=== PATIENT | female | born 1980 | race Two or more races ===

== ENCOUNTER → 2020-06-17 15:16 | Outpatient (BNVA) | payer MEDICAID, SELFPAY | PROVIDERS: PCP Internal Medicine; Referring Provider Internal Medicine; Visit Provider Internal Medicine Cardiovascular Disease | DX: Z76.89 Persons encountering health services in other specified circumstances (principal) ==

== ENCOUNTER → 2020-07-09 07:56 | Outpatient (BNVA) | payer BC, MEDICAID, SELFPAY | PROVIDERS: PCP Internal Medicine; Visit Provider Advanced Practice Midwife | DX: Z76.89 Persons encountering health services in other specified circumstances (principal) ==

== ENCOUNTER → 2020-07-13 08:19 | Outpatient (BNVA) | payer MEDICAID, SELFPAY | PROVIDERS: PCP Internal Medicine; Visit Provider Dietitian, Registered | DX: Z76.89 Persons encountering health services in other specified circumstances (principal) ==

== ENCOUNTER → 2020-07-21 12:40 | Outpatient (BNVA) | payer MEDICAID, SELFPAY | PROVIDERS: PCP Internal Medicine; Visit Provider Dietitian, Registered | DX: Z76.89 Persons encountering health services in other specified circumstances (principal) ==

== ENCOUNTER → 2020-07-28 11:39 | Outpatient (BNVA) | payer MEDICAID, SELFPAY | PROVIDERS: PCP Internal Medicine; Referring Provider Internal Medicine; Visit Provider Dietitian, Registered | DX: E66.9 Obesity, unspecified (principal) ==

== ENCOUNTER → 2020-07-28 11:39 | Outpatient (BNVA) | payer MEDICAID, SELFPAY | PROVIDERS: PCP Internal Medicine; Referring Provider Internal Medicine; Visit Provider Dietitian, Registered | DX: Z76.89 Persons encountering health services in other specified circumstances (principal) ==

== ENCOUNTER → 2020-09-02 07:40 | Outpatient (BNVA) | payer MEDICAID, SELFPAY | PROVIDERS: PCP Internal Medicine; Visit Provider Surgery | DX: Z76.89 Persons encountering health services in other specified circumstances (principal) ==

== ENCOUNTER → 2020-10-07 08:16 | Outpatient (BNVA) | payer MEDICAID, SELFPAY | PROVIDERS: PCP Internal Medicine; Visit Provider Surgery | DX: Z76.89 Persons encountering health services in other specified circumstances (principal) ==

== ENCOUNTER → 2020-11-04 08:15 | Outpatient (BNVA) | payer MEDICAID, SELFPAY | PROVIDERS: PCP Internal Medicine; Visit Provider Surgery ==

== ENCOUNTER → 2020-12-07 13:36 | Outpatient (REF) | payer MEDICAID, SELFPAY ==
--- NOTE | 2020-12-07 13:45 | ECG_ITS ---
Hook-up date: 2020-12-07 13:52:00 Duration: 25:35:00 Test Indications: PALPITATIONS Medications: 59562 QRS complexes 821 Ventricular ectopics which represent <1 % of total QRS comp. 3 Supraventricular ectopics which represent <1 % of total QRS comp. * Paced QRS complexs which represent % of total QRS comp. VENTRICULAR ECTOPY 821 Isolated 0 Bigeminal Cycles 0 Couplets 0 Runs 0 Beats in Runs * Beats LONGEST at * BPM at :: -- * Beats FASTEST at * BPM at :: -- SUPRAVENTRICULAR ECTOPY 1 Isolated 1 Couplets 0 Runs 0 Beats in Runs * Beats LONGEST at * BPM at :: -- * Beats FASTEST at * BPM at :: -- HEART RATES 49 MIN at 00:24:09 2020-12-08 80 AVG 142 MAX at 13:54:18 2020-12-07 LONGEST RR 1.4160 secs at 00:24:03 2020-12-08 S-T LEVELS Channel 1 - 128 mm at 13:52:00 2020-12-07 - 128 mm at 13:52:00 2020-12-07 Channel 2 - 128 mm at 13:52:00 2020-12-07 - 128 mm at 13:52:00 2020-12-07 Channel 3 - 128 mm at 03:31:11 -- - 128 mm at 03:31:11 Underlying rhythm is sinus; Average ventricular rate 80/min; Occasional, isolated ventricular ectopy (<1%); No sustained arrhythmias; Patient did not report any symptoms in the diary Referred By: Yandy Zaman Overread By: SRIDEVI WILLSON
== END ==
LOC: HO.CARD 13:36
PROVIDERS: Visit Provider Internal Medicine
DX: R00.2 Palpitations (principal)
CPT/HCPCS: 93225; 93226

== ENCOUNTER → 2020-12-21 14:22 | Outpatient (BNVA) | payer MEDICAID, SELFPAY | PROVIDERS: PCP Internal Medicine; Visit Provider Physician Assistant | DX: K90.49 Malabsorption due to intolerance, not elsewhere classified (principal); Z98.84 Bariatric surgery status; Z79.899 Other long term (current) drug therapy | CPT/HCPCS: 99212 ==

== ENCOUNTER → 2020-12-24 15:26 | Outpatient (BNVA) | payer MEDICAID, SELFPAY | PROVIDERS: PCP Internal Medicine; Visit Provider Dietitian, Registered | DX: E66.9 Obesity, unspecified (principal); Z68.29 Body mass index [BMI] 29.0-29.9, adult | CPT/HCPCS: 97803 ==

== ENCOUNTER 2021-01-29 10:15 | Outpatient (REF) | payer MEDICAID, SELFPAY ==
[2021-01-29 11:02] LABS: MANUAL DIFF FLAG NO
[2021-01-29 11:12] LABS: Basophils Percent Auto 0.8 % (0-2); Eosinophils Absolute Auto 0.1 X10*3/uL (0.0-0.4); Eosinophils Percent Auto 2.1 % (0-4); Hematocrit 34.5 % (37-47); Imm Gran Abs Auto 0.02 X10*3/uL (0.00-0.03); Imm Gran Pct Auto 0.4 % (0.0-0.4); Lymphocytes Absolute Auto 2.2 X10*3/uL (1.2-4.9); Mean Corpuscular HGB Conc 31.9 g/dl (31.0-35.0); Mean Corpuscular Hemoglobin 28.1 pg (27.0-33.0); Mean Corpuscular Volume 88.2 fL (80-98); Mean Platelet Volume 10.7 fL (9.4-12.3); Monocytes Absolute Auto 0.3 X10*3/uL (0.1-1.2); Monocytes Percent Auto 5.4 % (2-11); Neutrophils Absolute Auto 2.6 X10*3/uL (2.0-8.3); Neutrophils Percent Auto 49.3 % (45-73); Platelet Count 217 X10*3/uL (160-400); Red Blood Count 3.91 X10*6/uL (4.20-5.50); Red Cell Distribution Width 12.3 % (11.0-16.0); White Blood Count 5.3 X10*3/uL (4.8-10.8)
[2021-01-29 11:38] LABS: Alanine Aminotransferase 21 U/L (0-31); Albumin Level 3.9 g/dL (3.5-5.0); Alkaline Phosphatase 45 U/L (39-117); Anion Gap 7 (12-20); Aspartate Amino Transferase 18 U/L (5-31); Bilirubin Total 0.5 mg/dL (0.0-1.0); Blood Urea Nitrogen 13 mg/dL (9-16); C Reactive Protein 0.04 mg/dL (< or = 0.50); Calcium 9.1 mg/dL (8.4-10.2); Carbon Dioxide 31 mmol/L (22-29); Chloride 107 mmol/L (96-108); Cholesterol 168 mg/dL; Estimated Glomerular Filt Rate > 60; Glucose Fasting 87 mg/dL (60-99); HDL Cholesterol 59 mg/dL; Iron 52 mcg/dL (30-160); LDL Cholesterol Calculated 92 mg/dl; Percent Iron Saturation 13 % (15-50); Potassium 4.2 mmol/L (3.3-5.1); Sodium 141 mmol/L (135-145); Total Iron Binding Capacity 398 mcg/dL (228-428); Triglycerides 86 mg/dL; Unsaturated Iron Binding 346 ug/dL
[2021-01-29 11:41] LABS: Estimated Average Glucose 85 mg/dL; Hemoglobin A1c % 4.6 %
[2021-01-29 12:01] LABS: Ferritin 16 ng/mL (10-250); TSH reflex Free T4 1.19 uIU/mL (0.32-4.0); Vitamin D 25-OH Total 20.6 ng/mL (>30)
[2021-01-29 12:13] LABS: Folate 19.1 ng/mL (> or = 4.0); Vitamin B12 759 pg/mL (200-900)
[2021-01-30 09:36] LABS: Insulin Level Total 2.8 uIU/mL
[2021-02-01 12:47] LABS: Zinc 66 mcg/dL (60-130)
[2021-02-02 10:27] LABS: Calcium (PTHI) 8.8 mg/dL (8.6-10.2); PTHI 52 pg/mL (14-64)
[2021-02-03 00:36] LABS: Vitamin A 40 mcg/dL (38-98)
[2021-02-03 15:56] LABS: Vitamin B1 17 nmol/L (8-30)
== END 2021-01-29 10:16 | disposition home or self-care (01) ==
LOC: HO.LAB 10:15
PROVIDERS: PCP Internal Medicine; Visit Provider Physician Assistant
DX: K91.2 Postsurgical malabsorption, not elsewhere classified (principal); E66.01 Morbid (severe) obesity due to excess calories; Z90.3 Acquired absence of stomach [part of]; Z98.84 Bariatric surgery status
CPT/HCPCS: 36415; 80053; 80061; 82306; 82607; 82728; 82746; 83036; 83525; 83540; 83970; 84425; 84443; 84590; 84630; 85025; 86140

== ENCOUNTER 2022-08-29 11:19 | Outpatient (REF) | payer MEDICAID, SELFPAY ==
--- NOTE | ~2022-08-29 | MM_ITS ---
EXAMINATION: MM SCREENING DIGITAL BREAST TOMOSYNTHESIS, BILATERAL CLINICAL INFORMATION: Screening. Asymptomatic. The lifetime risk of breast cancer based on the Tyrer-Cuzick Model is 13%. COMPARISON: Mammography: 04/14/2020, 04/09/2019 (new baseline) TECHNIQUE: Digital breast tomosynthesis is performed in both the craniocaudal and mediolateral oblique views along with computer-aided detection (CAD). Synthesized 2D images are generated from the tomosynthesis. Additional bilateral CC and right MLO views are provided. FINDINGS: There are scattered areas of fibroglandular density (ACR BI-RADS breast composition Category b). Breasts appears similar to prior exams. There is mild asymmetry of the breast size, left slightly larger, similar to prior studies. No developing density or architectural abnormality or interval abnormal calcifications. There are scattered benign predominantly dermal calcifications again noted. The axilla are unremarkable. No significant changes. MM/MM tomosynthesis screening BI IMPRESSION: No mammographic evidence of malignancy. ASSESSMENT: BI-RADS 2: Benign RECOMMENDATION: Routine annual mammography screening. This patient's information was entered into a reminder system with a target due date for their next mammogram.
== END 2022-08-29 11:20 | disposition home or self-care (01) ==
LOC: HO.MAMMO 11:19
PROVIDERS: PCP Internal Medicine; Visit Provider Advanced Practice Midwife
DX: Z12.31 Encounter for screening mammogram for malignant neoplasm of breast (principal)
CPT/HCPCS: 77063; 77067

== ENCOUNTER → 2023-01-24 12:44 | Outpatient (REF) | payer MEDICAID, SELFPAY ==
--- NOTE | 2023-01-24 12:47 | HM_ITS ---
Conclusion: 1. Patient was monitored for total period of 3 days and 55 minutes 2. Baseline was normal sinus rhythm with average heart rate of 79 beats per minute 3. No significant pauses or bradycardia noted 4. Occasional PVCs noted with total burden of 0.3%, isolated 5. No patient reported symptoms MTDD
== END ==
LOC: HO.CARD 12:44
PROVIDERS: PCP Internal Medicine; Visit Provider Internal Medicine
DX: R00.2 Palpitations (principal)
CPT/HCPCS: 93242

== ENCOUNTER 2023-05-17 15:17 | Outpatient (AMB) | payer MEDICAID, SELFPAY ==
[2023-05-17 15:19] VITALS: BP 100/62; PULSE 88
--- NOTE | 2023-05-17 15:19 | MHC.OFFVIS ---
Intake Vital Signs 05/17/23 15:19 Height 5 ft 5 in BMI Reason not done Patient refused/unable BP 100/62 Blood Pressure Location Lt brachial Position Sitting Pulse 88 Pulse Source Monitor Intake Visit Reasons: Overdue follow up/per Dr. Valdez/Palpitations Intake Note: Overdue follow up with EKG for evaluation of palpitations. Music Teacher Required: No Accompanied by: Employee Allergies adhesive tape [ADHESIVE TAPE] Allergy (Unknown, Verified 05/17/23 15:23) BLISTERS oxycodone [From PERCOCET] Allergy (Unknown, Verified 05/17/23 15:23) NAUSEA & VOMITING Medication List - Last Reconciled 05/17/23 by Sly Manuel MD albuterol 90 mcg/actuation mcg inhalation albuterol sulfate 90 mcg/actuation 1 inh inhalation Q4-6H PRN cholecalciferol (vitamin D3) 25 mcg PO QAM cyclobenzaprine 10 mg PO QAM docusate sodium (Colace) 100 mg PO DAILY ferrous sulfate (FeroSul) 325 mg PO Q OTHER DAY fexofenadine 180 mg PO DAILY PRN fluticasone propionate 220 mcg/actuation (Flovent HFA) 1 puff inhalation BID fluticasone propionate 50 mcg/actuation 1 - 2 sprays intranasal QAM gabapentin 600 mg PO TID hydroxyzine pamoate 50 mg PO Q6H PRN iron,carbonyl-vitamin C 65 mg iron- 125 mg (Vitron-C) 1 tab PO DAILY ketoconazole 2% topical DAILY lidocaine 5% (Lidoderm) 0 patches topical melatonin 5 mg PO BEDTIME midodrine 5 mg PO TID multivitamin 1 tab PO QAM pantoprazole 40 mg PO QAM prazosin 2 mg PO BEDTIME quetiapine 200 mg PO BEDTIME quetiapine 150 mg PO BEDTIME rosuvastatin 20 mg PO BEDTIME sennosides (senna) 17.2 mg PO BEDTIME sertraline 100 mg PO QAM topiramate 50 mg PO HPI HPI Comments History of Present Illness Details 43-year-old female who is here for follow-up. Previously she was seen for perioperative cardiovascular risk assessment for bariatric surgery. Apparently she underwent bariatric surgery successfully. Post surgery and weight loss she developed some orthostasis and was on midodrine. Apparently also had admission at [facility] in November 2021 with left-sided paralysis and received tPA. Her imaging did not show stroke but did show inflammatory changes and there was some workup done for multiple sclerosis. She does not know a lot of details and since then has been wheelchair-bound with left-sided flaccid paralysis. Etiology is unclear to me currently. I have reviewed her chart in [facility] and there is nothing clearly documented about diagnosis that I could find. She has palpitations and is here because of them. She has been experiencing palpitations off and on for few months. She is getting up to 4-5 episodes per month and feels that her heart is racing. She has expressive aphasia since the stroke. She has no other symptoms currently. EKGs done at [facility] I have not shown atrial fibrillation. 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 Sister No problems noted. Son No problems noted. Social History Household Members Other:: niece Housing: Apartment Alcohol intake: never Patient Tobacco Use Status: Never used Tobacco Current occupational status: disabled Sexual orientation: Straight/Heterosexual Gender identity: Female Female Reproductive History Menstrual Age of Menarche: 10 Review of Systems Const Denies weakness ENT Denies dizziness Card Denies chest pain, Denies chest pain with activity, Denies syncope, Denies rapid heart rate, Denies pedal edema, Denies edema, Denies leg edema, Denies lightheadedness, Denies palpitations, Denies dyspnea, Denies dyspnea on exertion and Denies orthopnea Resp Denies cough, Denies dyspnea and Denies dyspnea on exertion GI Denies hematochezia and Denies change in stool character Musc Denies abnormal gait, Denies muscle cramps, Denies muscle weakness, Denies numbness, Denies radiating pain into limb and Denies tingling Neuro Denies abnormal gait, Denies dizziness, Denies syncope, Denies numbness, Denies tingling and Denies weakness Endo Denies palpitations Physical Exam Vital Signs: Last Vital Signs Pulse 88 05/17/23 15:19 BP 100/62 05/17/23 15:19 GENERAL APPEARANCE: in no acute distress, pleasant. NECK: no carotid bruit, no jugular venous distention. SKIN: no suspicious lesions, warm and dry. HEART: no murmurs, regular rate and rhythm. LUNGS: clear to auscultation bilaterally. ABDOMEN: soft, nontender. EXTREMITIES: no edema. PERIPHERAL PULSES: equal. NEUROLOGIC: Left-sided hemiparesis. Office Procedures EKG Details: Sinus rhythm 88 beats per minute, leftward axis, left ventricular hypertrophy, QTC 467 milliseconds. [id number], Complete Assessment & Plan Assessment & Plan (1) Palpitations: Code(s): R00.2 - Palpitations Plan 43-year-old female who is here for follow-up. She was seen previously for perioperative cardiovascular risk assessment. She is returning and 39 had a stroke with left-sided paralysis. Based on her imaging she had some sort of inflammatory process and multiple sclerosis was in the differentials. She needs to closely follow with neurology. She currently is wheelchair-bound at age 43. He is complaining of some palpitations. I think we should rule out atrial fibrillation and will arrange a cardiac event monitor for her. We will also check echocardiogram to rule out any structural issues. Thank you for allowing me to participate in the care of your patient. Please feel free to contact me if you have any questions. Orders: Orders CA echo transthoracic complete Today R00.2 - Palpitations ECG 30 day event monitor Today R00.2 - Palpitations Coding Level of Care Code Est Pt Level 4 (91497) Diagnoses Palpitations R00.2 CPT Codes EKG - CPT: 57803-[id number], Complete ([id number])
== END 2023-05-17 16:02 | disposition home or self-care (01) ==
PROVIDERS: PCP Internal Medicine; Visit Provider Internal Medicine Cardiovascular Disease
DX: R94.31 Abnormal electrocardiogram [ECG] [EKG] (principal)
CPT/HCPCS: 93010; 99214

== ENCOUNTER → 2023-05-17 15:17 | Outpatient (BNVA) | payer MEDICAID, SELFPAY | PROVIDERS: PCP Internal Medicine; Visit Provider Internal Medicine Cardiovascular Disease | DX: R00.2 Palpitations (principal) | CPT/HCPCS: 93005; 99212 ==

== ENCOUNTER → 2023-05-31 15:26 | Outpatient (REF) | payer MEDICAID, SELFPAY ==
--- NOTE | 2023-05-31 15:30 | CA_ITS ---
Transthoracic Echocardiogram Patient (Last, First, Middle): Fe Morales, Gender: Female Date of : 1980 Age: 43 Procedure Date: 05/31/2023 Procedure Type: Transthoracic Echocardiogram Location: OP Height: 165.1 cm Weight: 129.28 kg BSA: 2.30 m2 Heart Rate: bpm BP: 137 / 80 mmHg Environmental Tech: Referring MD: Sly Manuel MD Ointment Mill Tender: Sly Manuel MD Symptoms: R00.2 - Palpitations Study Quality: Adequate ECG Rhythm: Sinus Conclusions: - Mildly increased left ventricular cavity size. There is moderately increased left ventricular wall thickness. The left ventricular systolic function is low normal. The visually estimated ejection fraction is between 50-55%. - Mildly increased right ventricular cavity size. There is normal right ventricular systolic function. - There is mild dilatation of the ascending aorta measuring 3.40 cm. Findings Left Ventricle Mildly increased left ventricular cavity size. There is moderately increased left ventricular wall thickness. The left ventricular systolic function is low normal. The visually estimated ejection fraction is between 50-55%. There is no evidence of regional wall motion abnormalities. Diastolic function is normal for age. Right Ventricle Mildly increased right ventricular cavity size. There is normal right ventricular systolic function. Atria The left atrium is normal in size. Aortic Valve The aortic valve structure and function is likely normal. There is no aortic valve stenosis. There is no aortic valve regurgitation. Mitral Valve The mitral valve appears normal. There is no mitral valve regurgitation. There is no mitral valve stenosis. Pulmonic Valve The pulmonic valve is likely normal. Tricuspid Valve Normal tricuspid valve structure and function. Normal right atrial pressure. There is no evidence of pulmonary hypertension. Great Vessels There is mild dilatation of the ascending aorta measuring 3.40 cm. The visualized portions of the pulmonary artery and branches are normal. Venous The inferior vena cava is normal in size and collapses greater than 50% with inspiration. Pericardium/Pleural There is no evidence of pericardial effusion. Prior Study Comparison No prior study available for comparison. Measurements 2D Linear Measurements IVSd: 1.25 0.6-0.9/0.6-1.0 cm LVIDd: 5.02 3.9-5.3/4.2-5.9 cm LVIDd Index: 2.18 2.4-3.2/2.2-3.1 cm/m2 LVIDs: 3.17 2.0-3.6 cm LVPWd: 1.34 0.7-1.1 cm Ao Root: 3.20 2.1-3.5 cm LA Diam: 4.00 2.7-3.8/3.0-4.0 cm LAIDs Index: 1.74 1.5-2.3 cm/m2 LV Mass: 326.77 67-162/88-224 g LV Mass Index: 142.08 43-95/49-115 g/m2 LVOT Diam: 2.20 3.0+(-)1.3 cm 2D Systolic Function EF 4C: 45.10 >55% EF 2C: 55.60 >55% EF BiP: 50.80 >55% Mitral Valve MV Pk E: 0.68 MV PK A: 0.52 MV Decel Time: 180.00 E/A: 1.30 E'Lateral: 10.90 E'Medial: 12.70 E/E' Med: 5.40 E/E' Lat: 6.20 PHT: 53.00 MVA PHT: 4.15 Decel [place]: 3.78 Aortic Valve AoV Pk Srinivasa: 1.25 AoV Mn Srinivasa: 0.81 AoV VTI: 0.24 AoV Pk Grad: 6.00 Aov Mn Grad: 3.00 AMBROCIO Cont.VTI: 2.90 LVOT LVOT Pk Srinivasa: 0.86 LVOT Mn Srinivasa: 0.57 LVOT VTI: 0.19 LVOT Pk Grad: 3.00 LVOT Mn Grad: 2.00 LVOT Diam: 2.20 LVOT Area: 3.80 Diastolic Function MV Pk E: 0.68 MV Pk A: 0.52 E/A: 1.30 E'Medial: 12.70 E/E' Med: 5.40 E' Laterial: 10.90 E/E' Lat: 6.20 Right Ventricle TAPSE (mm): 25.00 TVS' Srinivasa: 13.00 Tricuspid Valve TR Pk Srinivasa: 2.51 TR Pk Grad: 25.00 RA Press: 3.00 RVSP: 28.00 Great Vessels Aorta Ao Root-2D: 3.20 2.0-3.7 cm Ao Asc: 3.40 2.1-3.4 cm Pulmonary Valve PV Pk Srinivasa: 0.88 Peak PV Grad: 3.00 Updated in Other Vendor System with Status of Final Sly Manuel MD electronically signed on 06/01/2023 1:38:03 PM with status of Final
--- NOTE | 2023-05-31 15:30 | HM_ITS ---
Cardiac event monitoring Indication: Palpitation Technique: Patient was hooked up to cardiac event monitor on 05/31/2023 for total duration of 30 days. Compliance rate was about 95%. Quality of tracings was adequate. Findings: Baseline was normal sinus rhythm with maximum heart rate 150 beats per minute the minimal heart rate of 83 beats per minute with sinus tachycardia happening about 30% of the time. No significant pauses noted. Frequent PVC burden noted mostly isolated at about 2%. No other tachy or Oliver arrhythmias noted. Patient activated symptom button 20 2 times but only reported 4 symptoms including palpitations, irregular heartbeat, heart racing all correlating with PVCs Conclusion: 1. Baseline was normal sinus rhythm with no significant pauses 2. Frequent isolated PVCs noted with total burden of 2% 3. Patient reported 4 symptoms correlated with PVCs MTDD
== END ==
LOC: HO.CARD 15:26
PROVIDERS: PCP Internal Medicine; Visit Provider Internal Medicine Cardiovascular Disease
DX: R00.2 Palpitations (principal)
CPT/HCPCS: 93270; 93306

== ENCOUNTER → 2023-05-31 15:30 | Outpatient (BNV) | payer MEDICAID, SELFPAY | PROVIDERS: PCP Internal Medicine; Visit Provider Internal Medicine Cardiovascular Disease | DX: I49.3 Ventricular premature depolarization (principal) | CPT/HCPCS: 93272; 93306 ==

== ENCOUNTER 2023-07-12 10:46 | Outpatient (REF) | payer MEDICAID, SELFPAY ==
--- NOTE | ~2023-07-12 | FL_ITS ---
EXAMINATION: FL BARIUM SWALLOW CLINICAL INFORMATION: Dysphagia. COMPARISON: 06/26/2019 TECHNIQUE: Fluoroscopic air contrast upper GI examination was performed utilizing standard techniques with thin and thick barium. Multiple fluoroscopic spot images were obtained, as well as several image hold fluoroscopic cine runs. FINDINGS: Study is extremely limited, as the patient was unable to tolerate positioning for the majority of the examination. A limited study was performed, as much as the patient could tolerate. Patient could not swallow effervescent granules. Lateral cine images of the oropharynx and hypopharynx demonstrate tongue pumping with eventual swallow. Grossly normal epiglottic inversion and soft palate elevation. No tracheal penetration, glottic or subglottic aspiration identified. No nasopharyngeal reflux present. Hypopharyngeal structures appear normal without evidence of mass or diverticulum. There was no significant cricopharyngeal achalasia. Limited single contrast images of the esophagus demonstrate normal caliber, contour, and mucosal pattern. No gross evidence of stricture, mass, or ulcerations identified. Disordered peristalsis led to to and fro motion of the barium column in the esophagus, which ultimately resulted in patient regurgitation of the barium (vomiting). The examination was, therefore, terminated. Limited evaluation of the superior stomach and GE junction shows a small type III hiatal hernia. FLUOROSCOPY TIME: 1 minute 16 seconds Number of Spot Images: 2; single image hold fluoroscopic run. DOSE AREA PRODUCT: 615 uGy-m2 (microgray-meter squared) FL/FL barium swallow IMPRESSION: 1. Very limited exam due to patient inability to tolerate positioning and overall medical condition. No evidence of aspiration of the barium contrast. 2. Limited evaluation of the esophagus shows dysmotility which led to regurgitation (vomiting) of the barium. Etiology is unclear. 3. Small type III hiatal hernia. This procedure was performed by Jim Gates PA-C, and supervised by Dr. Rubin
== END 2023-07-12 10:47 | disposition home or self-care (01) ==
LOC: HO.XRAY 10:46
PROVIDERS: PCP Internal Medicine; Visit Provider Internal Medicine
DX: R13.11 Dysphagia, oral phase (principal)
CPT/HCPCS: 74220

== ENCOUNTER → 2023-07-12 10:48 | Outpatient (BNV) | payer MEDICAID, SELFPAY | PROVIDERS: PCP Internal Medicine; Visit Provider Radiology Diagnostic Radiology | DX: R13.11 Dysphagia, oral phase (principal) | CPT/HCPCS: 74220 ==

== ENCOUNTER 2023-07-25 13:54 | Outpatient (REF) | payer MEDICAID, SELFPAY ==
[2023-07-29 13:43] LABS: HPV mRNA E6/E7 rflx Not Detected (Not Detected)
== END 2023-07-25 13:55 | disposition home or self-care (01) ==
LOC: HO.LNP 13:54
PROVIDERS: Visit Provider Advanced Practice Midwife
DX: Z01.419 Encounter for gynecological examination (general) (routine) without abnormal findings (principal); Z11.51 Encounter for screening for human papillomavirus (HPV); D21.9 Benign neoplasm of connective and other soft tissue, unspecified; N85.2 Hypertrophy of uterus; K44.9 Diaphragmatic hernia without obstruction or gangrene; K21.9 Gastro-esophageal reflux disease without esophagitis
CPT/HCPCS: 87624; 88142; 99396

== ENCOUNTER 2023-07-25 13:54 | Outpatient (AMB) | payer MEDICAID, SELFPAY ==
[2023-07-25 14:22] VITALS: BP 144/80
--- NOTE | 2023-07-25 14:22 | MHC.OFFVIS ---
Intake Vital Signs 07/25/23 14:22 Height 5 ft 5 in BMI Reason not done Patient refused/unable BP 144/80 H Intake Visit Reasons: Annual Intake Note: Scribed for Laura Haynes CNM by [facility] scribe, on 07/25/2023 at 2:23 PM, EST. NICK Matthews Aircraft Air Conditioning Mechanic: Aircraft Air Conditioning Mechanic Present (Bee) Accompanied by: Other Relationship Allergies adhesive tape [ADHESIVE TAPE] Allergy (Unknown, Verified 07/25/23 14:24) BLISTERS oxycodone [From PERCOCET] Allergy (Unknown, Verified 07/25/23 14:24) NAUSEA & VOMITING Is last menstrual period known: Yes Last menstrual period: 06/26/23 HPI HPI Comments History of Present Illness Details She is a premenopausal woman presenting for annual exam. She is seen today in a wheelchair with her left arm in a brace. Hx of stroke in 10/2021. She is accompanied by her (NICK) today. Doing well with some gynecologist concerns. Not currently sexually active. Heavy regular monthly periods with ~4 days of bleeding. She takes Inositol supplements that she purchases online, which she says helps her menses. Denies vaginal itching and irritation. STD screening offered; she accepts. Denies family hx of breast, colon and ovarian cancer. Last pap smear done in 2018. Last mammogram 08/29/2022, 2Benign Findings. Next mammogram scheduled for 08/30/23. Hx of uterine hyperplasia & fibroids. She was being seen by Dr. Gómez at [facility] for regular biopsies (every 3-6 months). She has fallen out of care and not been seen in some time there. [facility] Medical History Hiatal hernia Stroke Intestinal malabsorption following gastrectomy Uterine hyperplasia Obesity (BMI 30.0-34.9) Malabsorption due to intolerance, not elsewhere classified Asthma Obesity History of hepatoblastoma Surgical History S/P laparoscopic sleeve gastrectomy Bariatric surgery status Family History Mother Heart disease Mother Heart disease Father Kidney problem Arthritis Sister No problems noted. Sister No problems noted. Son No problems noted. Social History Household Members Other:: niece Housing: Apartment Alcohol intake: never Patient Tobacco Use Status: Never used Tobacco Current occupational status: disabled Sexual orientation: Straight/Heterosexual Gender identity: Female Female Reproductive History Menstrual Age of Menarche: 10 Date of last menstrual period: 06/26/23 control method: none Total pregnancies: 1 Ab spontaneous: 1 Date of last pap smear: 03/09/18 (neg pap and hpv) History of abnormal pap smear: Yes (10/28 ascus) Date of Mammogram: 08/29/22 (Birad 2) Review of Systems Const All systems reviewed & are unremarkable except as noted in HPI and below Reports as per HPI Eyes Reports no additional complaints ENT Reports no additional complaints Card Reports no additional complaints Resp Reports no additional complaints GI Reports as per HPI and Reports no additional complaints Reports as per HPI Musc Reports no additional complaints Skin/Breast Reports as per HPI Neuro Reports no additional complaints Psych Reports no additional complaints Endo Reports no additional complaints Gary/Lymph Reports no additional complaints Aller/Immun Reports no additional complaints Physical Exam Vital Signs: Last Vital Signs BP 144/80 H 07/25/23 14:22 Const General: cooperative, healthy appearing, no acute distress, well developed and alert Orientation/consciousness: patient oriented x3 HEENT Head: Yes normal to inspection Eyes General: appearance normal, both eyes and all related structures Neck Neck: Yes normal visual inspection Thyroid: Thyroid normal Chest Chest palpation & inspection: normal inspection of the chest and other (no puckering, dimpling, peau de orange, retraction, discharge, masses) Breast/axilla inspection: normal inspection of the breasts Breast/axilla palpation: normal palpation of the breasts Resp Effort & Inspection: normal respiratory effort GI Inspection: Yes normal to inspection and Yes obesity Palpation (GI): Soft to palpation Rectal Exam - Female: deferred General: Yes bladder normal to palpation External Female Exam: normal external appearance and normal appearance of the urethra Speculum Exam - Vagina: normal appearance of the vagina, normal palpation and normal vaginal discharge Speculum Exam - Cervix: normal appearance of the cervix and normal palpation Bimanual exam- vagina & uterus: normal bimanual exam, normal palpation, uterine size normal, bladder normal to palpation, normal palpation and non-tender Bimanual Exam- Adnexa, other: no masses Skin General skin exam: no rashes or lesions noted Rashes: no rashes Neuro General: patient oriented x3 Cognition (Neuro): normal cognition Extrem General: Yes normal to inspection Psych Attitude: cooperative Thought process: Normal thought process present Assessment & Plan Assessment & Plan (1) Encounter for annual routine gynecological examination: Code(s): Z01.419 - Encounter for gynecological examination (general) (routine) without abnormal findings Plan: Discussed: Current recommendations for pap smears per ASCCP guidelines. Breast awareness and periodic self breast exams. Maintaining a healthy lifestyle including a well balanced diet and routine exercise. Encouraged patient to sign up for patient portal. Pap smear performed today. Her next mammogram is scheduled for 08/30/23. All of her questions and concerns were addressed to the best of my ability She will return in one year for AG. (2) Fibroids: Code(s): D21.9 - Benign neoplasm of connective and other soft tissue, unspecified Plan: Her last US was performed many years ago at [facility]. I ordered an US, she will follow up for a biopsy & to discuss results. This should be a 45 minute appointment. (3) Uterine hyperplasia: Code(s): N85.2 - Hypertrophy of uterus (4) Hiatal hernia: Code(s): K44.9 - Diaphragmatic hernia without obstruction or gangrene Plan: Managing with medication & dietary modification. (5) GERD (gastroesophageal reflux disease): Code(s): K21.9 - Gastro-esophageal reflux disease without esophagitis (6) Routine screening for STI (sexually transmitted infection): Code(s): Z11.3 - Encounter for screening for infections with a predominantly sexual mode of transmission Plan: Needs to be performed at her next appointment. Orders: Orders Pap Smear Today Z01.419 - Encounter for gynecological examination (general) (routine) without abnormal findings US pelvic and transvaginal Today D21.9 - Benign neoplasm of connective and other soft tissue, unspecified, N85.00 - Endometrial hyperplasia, unspecified Coding Level of Care Code Est Pt Prev Care 40-64y(36318) Diagnoses Encounter for annual routine gynecological examination Z01. Fibroids D21.9 Uterine hyperplasia N85.2 Hiatal hernia K44.9 GERD (gastroesophageal reflux disease) K21.9 Routine screening for STI (sexually transmitted infection) Z11.3
== END 2023-07-25 15:24 | disposition home or self-care (01) ==
PROVIDERS: Visit Provider Advanced Practice Midwife
DX: Z01.419 Encounter for gynecological examination (general) (routine) without abnormal findings (principal); D21.9 Benign neoplasm of connective and other soft tissue, unspecified; N85.2 Hypertrophy of uterus; K44.9 Diaphragmatic hernia without obstruction or gangrene; K21.9 Gastro-esophageal reflux disease without esophagitis; Z11.3 Encounter for screening for infections with a predominantly sexual mode of transmission
CPT/HCPCS: 99396

== ENCOUNTER 2023-08-21 15:44 | Outpatient (REF) | payer MEDICAID, SELFPAY ==
--- NOTE | ~2023-08-21 | US_ITS ---
EXAMINATION: US PELVIS CLINICAL INFORMATION: Benign neoplasm of connective and other soft tissues. Last menstrual period 07/27/2023. COMPARISON: Pelvic ultrasound 03/20/2018. CT abdomen and pelvis of 04/30/2019. TECHNIQUE: Transabdominal ultrasound images of the pelvis. Transvaginal ultrasound images could not be obtained as patient had limited mobility due to patient's reported stroke last year and, therefore, exam was performed in an electric chair. Limited visualization due to bowel gas and body habitus. FINDINGS: The uterus is heterogeneous and measures 12.8 x 7.0 x 8.0 cm, volume 375 mL. Posterior 5.9 x 6.2 x 5.4 cm fibroid, previously 3.0 x 3.0 x 2.9 cm. A 3.2 x 2.9 x 3.1 cm fibroid was not previously identified. Endometrial thickness is 1.0 cm. Bilateral ovaries were not visualized. Limited visualization due to bowel gas and body habitus. No significant free fluid. US/US pelvic complete IMPRESSION: 1. Fibroid uterus. 2. Bilateral ovaries were not visualized. Limited visualization.
== END 2023-08-21 15:45 | disposition home or self-care (01) ==
LOC: HO.US 15:44
PROVIDERS: PCP Internal Medicine; Visit Provider Advanced Practice Midwife
DX: D21.9 Benign neoplasm of connective and other soft tissue, unspecified (principal); N85.00 Endometrial hyperplasia, unspecified
CPT/HCPCS: 76856

== ENCOUNTER 2023-08-30 13:13 | Outpatient (REF) | payer MEDICAID, SELFPAY | END 2023-08-30 13:14 | disposition home or self-care (01) | LOC: HO.MAMMO 13:13 | PROVIDERS: PCP Internal Medicine; Visit Provider Advanced Practice Midwife | DX: Z12.31 Encounter for screening mammogram for malignant neoplasm of breast (principal) | CPT/HCPCS: 77063; 77067 ==

== ENCOUNTER → 2023-08-30 13:15 | Outpatient (BNV) | payer MEDICAID, SELFPAY | PROVIDERS: PCP Internal Medicine; Visit Provider Radiology Diagnostic Radiology | DX: Z12.31 Encounter for screening mammogram for malignant neoplasm of breast (principal) | CPT/HCPCS: 77063; 77067 ==

== ENCOUNTER 2023-09-22 14:50 | Outpatient (AMB) | payer MEDICAID, SELFPAY ==
--- NOTE | 2023-09-22 14:55 | MHC.OFFVIS ---
Intake Vital Signs 09/22/23 15:00 Height 5 ft 5 in BMI Reason not done Patient refused/unable BP 134/86 Intake Visit Reasons: US follow up/EMB/45 Mins Parking Ramp Attendant Required: No Information Interpreted: non-clinical & clinical Dandy Tender: Dandy Tender Present (Damaris STAHL) Accompanied by: Friend Allergies adhesive tape [ADHESIVE TAPE] Allergy (Unknown, Verified 09/22/23 15:01) BLISTERS oxycodone [From PERCOCET] Allergy (Unknown, Verified 09/22/23 15:01) NAUSEA & VOMITING Is last menstrual period known: Yes HPI HPI Comments History of Present Illness Details Patient is here today for follow-up ultrasound accompanied by her SULFURIC ACID PLANT OPERATOR. History of heavy menstrual periods, fibroids, hyperplasia treated and monitored by Dr. Denton at [facility] up until 1-2yrs. ago, q 3 months for EMB. Does not take any hormones for treatment. Using a herbal remedy for her menstrual cycles. History of blood transfusions and a D&C 2010 in [place]. [facility] Medical History Hiatal hernia Stroke Intestinal malabsorption following gastrectomy Uterine hyperplasia Obesity (BMI 30.0-34.9) Malabsorption due to intolerance, not elsewhere classified Asthma Obesity History of hepatoblastoma Surgical History S/P laparoscopic sleeve gastrectomy Bariatric surgery status Family History Mother Heart disease Mother Heart disease Father Kidney problem Arthritis Sister No problems noted. Sister No problems noted. Son No problems noted. Social History Household Members Other:: niece Housing: Apartment Alcohol intake: never Patient Tobacco Use Status: Never used Tobacco Current occupational status: disabled Sexual orientation: Straight/Heterosexual Gender identity: Female Female Reproductive History Menstrual Age of Menarche: 10 Physical Exam Vital Signs: Last Vital Signs BP 134/86 09/22/23 15:00 Const General: cooperative, no acute distress and alert Results AMB Test Urine AMB Test Urine Negative Last Edit by Damaris Elder CMA on 09/22/23 15:10 Results Reviewed Results Reviewed: [address] [place] [address] Ultrasound Report Signed Patient: Fe Morales MR#: [id number] : 1980 Acct:[id number] Age/Sex: 43 / F ADM Date: 08/21/23 Loc: .[place] Attending Dr: Laura Haynes CNM Ordering Physician: Laura Haynes CNM Date of Service: 08/21/23 Procedure(s): US pelvic complete Accession Number(s): [id number] cc: Yandy Zaman MD; Laura Haynes CNM~ EXAMINATION: US PELVIS CLINICAL INFORMATION: Benign neoplasm of connective and other soft tissues. Last menstrual period 07/27/2023. COMPARISON: Pelvic ultrasound 03/20/2018. CT abdomen and pelvis of 04/30/2019. TECHNIQUE: Transabdominal ultrasound images of the pelvis. Transvaginal ultrasound images could not be obtained as patient had limited mobility due to patient's reported stroke last year and, therefore, exam was performed in an electric chair. Limited visualization due to bowel gas and body habitus. FINDINGS: The uterus is heterogeneous and measures 12.8 x 7.0 x 8.0 cm, volume 375 mL. Posterior 5.9 x 6.2 x 5.4 cm fibroid, previously 3.0 x 3.0 x 2.9 cm. A 3.2 x 2.9 x 3.1 cm fibroid was not previously identified. Endometrial thickness is 1.0 cm. Bilateral ovaries were not visualized. Limited visualization due to bowel gas and body habitus. No significant free fluid. US/US pelvic complete IMPRESSION: 1. Fibroid uterus. 2. Bilateral ovaries were not visualized. Limited visualization. Dictated By: Rhonda Sargent MD Signed By: <Electronically signed by Rhonda Sargent MD in OV> 08/23/23 1509 DD/ 1629 TD/TT: Manager Cosmetics: Assessment & Plan Assessment & Plan (1) Endometrial hyperplasia: Code(s): N85.00 - Endometrial hyperplasia, unspecified (2) Heavy menstrual bleeding: Code(s): N92.0 - Excessive and frequent menstruation with regular cycle (3) Fibroid uterus: Code(s): D25.9 - Leiomyoma of uterus, unspecified (4) Pelvic pressure in female: Code(s): R10.2 - Pelvic and perineal pain Plan Discussed: Enlarging fibroid, new fibroid. Counseled re: Leiomyoma: common pelvic neoplasm. Differential diagnosis-may include leiomyosarcoma which is a rare uterine sarcoma 3-7/100,000, difficult to distinguish from fibroids on ultrasound from uterine sarcoma's. Unlikely any single test will have a highly positive predictive value. Hysterectomy is not recommended for sole purpose of excluding malignant neoplasm. Consult for surgical exploration verses expectant management offered. Patient prefers to follow-up at [facility] with Dr. Yung. Heavy menstrual bleeding with a history of hyperplasia, offered EMB today-patient prefers to do this at [facility] with Dr. Yung appointment was given for next week with Dr. Yung on Monday09/26/2023. All of her questions and concerns were addressed to the best of my ability and shared decision making. She is agreeable to the plan of care. Orders: Orders AMB HCG Urine Test Today Z32.02 - Encounter for test, result negative Referrals Gynecologic Oncology Referral D21.9 - Benign neoplasm of connective and other soft tissue, unspecified, N85.02 - Endometrial intraepithelial neoplasia [EIN], N92.0 - Excessive and frequent menstruation with regular cycle, N93.9 - Abnormal uterine and vaginal bleeding, unspecified Coding Level of Care Code Est Pt Level 3 (50805) Diagnoses Endometrial hyperplasia N85.00 Heavy menstrual bleeding N92.0 Fibroid uterus D25.9 Pelvic pressure in female R10.2
[2023-09-22 15:00] VITALS: BP 134/86
== END 2023-09-22 15:43 | disposition home or self-care (01) ==
PROVIDERS: PCP Internal Medicine; Visit Provider Advanced Practice Midwife
DX: N85.00 Endometrial hyperplasia, unspecified (principal); N92.0 Excessive and frequent menstruation with regular cycle; D25.9 Leiomyoma of uterus, unspecified; R10.2 Pelvic and perineal pain; Z32.02 Encounter for pregnancy test, result negative
CPT/HCPCS: 99213

== ENCOUNTER → 2023-09-22 14:50 | Outpatient (BNVA) | payer MEDICAID, SELFPAY | PROVIDERS: PCP Internal Medicine; Visit Provider Advanced Practice Midwife | DX: N85.02 Endometrial intraepithelial neoplasia [EIN] (principal); N92.0 Excessive and frequent menstruation with regular cycle; D25.9 Leiomyoma of uterus, unspecified; R10.2 Pelvic and perineal pain | CPT/HCPCS: 81025; 99212 ==

== ENCOUNTER 2023-10-09 14:20 | Outpatient (AMB) | payer MEDICAID, SELFPAY ==
--- NOTE | 2023-10-09 15:18 | MHC.OFFVIS ---
Intake Vital Signs 10/09/23 15:19 Height 5 ft 5 in BP 140/70 H Blood Pressure Location Rt brachial Position Sitting Pulse 91 Pulse Source Pulse Oximeter Intake Visit Reasons: fu holter/echo (KM) Hat Binder Required: No Staff Midwife/Apprenticeship Director: Staff Midwife/Apprenticeship Director Present Allergies adhesive tape [ADHESIVE TAPE] Allergy (Unknown, Verified 10/09/23 15:21) BLISTERS oxycodone [From PERCOCET] Allergy (Unknown, Verified 10/09/23 15:21) NAUSEA & VOMITING Medication List - Last Reconciled 10/09/23 by SANTO Ohara albuterol 90 mcg/actuation mcg inhalation albuterol sulfate 90 mcg/actuation 1 inh inhalation Q4-6H PRN cholecalciferol (vitamin D3) 25 mcg PO QAM cyclobenzaprine 10 mg PO QAM docusate sodium (Colace) 100 mg PO DAILY ferrous sulfate (FeroSul) 325 mg PO Q OTHER DAY fexofenadine 180 mg PO DAILY PRN fluticasone propionate 220 mcg/actuation (Flovent HFA) 1 puff inhalation BID fluticasone propionate 50 mcg/actuation 1 - 2 sprays intranasal QAM gabapentin 600 mg PO TID hydroxyzine pamoate 50 mg PO Q6H PRN iron,carbonyl-vitamin C 65 mg iron- 125 mg (Vitron-C) 1 tab PO DAILY ketoconazole 2% topical DAILY melatonin 5 mg PO BEDTIME midodrine 5 mg PO TID multivitamin 1 tab PO QAM pantoprazole 40 mg PO BID prazosin 2 mg PO BEDTIME quetiapine 200 mg PO BEDTIME quetiapine 150 mg PO BEDTIME rosuvastatin 20 mg PO BEDTIME sennosides (senna) 17.2 mg PO BEDTIME sertraline 100 mg PO QAM topiramate 50 mg PO HPI fu holter/echo (KM) HPI Details Fe is a 43-year-old female with past medical history of obesity status post bariatric surgery followed by issues with orthostatic blood pressures and had been on midodrine for blood pressure control who developed left-sided weakness, expressive aphasia and was found to have a CVA. On last visit to cardiology she reported heart palpitations. A cardiac event monitor and echocardiogram were done to help evaluate for paroxysmal atrial fibrillation. Today she reports that she has been feeling well since her last visit. She is wheelchair-bound and has residual left-sided weakness. She does have ongoing expressive aphasia but is able to communicate fairly well. She denies any chest discomfort with exertion. At times she will notice a pinching type sensation on her left chest which occurs randomly. She has some shortness of breath at times which she relates to her asthma. She has sleep apnea and reports compliance with her CPAP. Intermittent heart palpitations which just feel like her heart is skipping a beat. No sustained rapid or irregular rates. No presyncope, syncope, falls. No PND, orthopnea. She does get left lower leg edema. She will be starting back in physical therapy with hopes to regain some more function of her left side. ATG JAVA DEVELOPER is present. [facility] Medical History Hiatal hernia Stroke Intestinal malabsorption following gastrectomy Uterine hyperplasia Obesity (BMI 30.0-34.9) Malabsorption due to intolerance, not elsewhere classified Asthma Obesity History of hepatoblastoma Surgical History S/P laparoscopic sleeve gastrectomy Bariatric surgery status Family History Mother Heart disease Mother Heart disease Father Kidney problem Arthritis Sister No problems noted. Sister No problems noted. Son No problems noted. Social History Household Members Other:: niece Housing: Apartment Alcohol intake: never Patient Tobacco Use Status: Never used Tobacco Current occupational status: disabled Sexual orientation: Straight/Heterosexual Gender identity: Female Female Reproductive History Menstrual Age of Menarche: 10 Review of Systems Const Details: Left-sided hemiparesis, sitting in wheelchair All systems reviewed & are unremarkable except as noted in HPI and below ENT Denies dizziness Card Details: Pinching pains and left chest Denies chest pain, Denies chest pain at rest, Denies chest pain with activity, Denies rapid heart rate, Denies pedal edema, Denies edema, Denies leg edema, Denies lightheadedness, Denies palpitations, Denies dyspnea, Reports dyspnea on exertion and Denies orthopnea Resp Denies cough, Denies dyspnea and Reports dyspnea on exertion GI Denies hematochezia and Denies change in stool character Musc Reports abnormal gait, Reports limited range of motion, Denies muscle cramps, Reports muscle weakness, Denies numbness, Denies radiating pain into limb, Denies stiffness and Denies tingling Neuro Reports abnormal gait, Denies dizziness, Denies numbness and Denies tingling Endo Denies palpitations Physical Exam Vital Signs: Last Vital Signs Pulse 91 10/09/23 15:19 BP 140/70 H 10/09/23 15:19 Const General: cooperative, healthy appearing, comfortable and no acute distress Orientation/consciousness: patient oriented x3 Neck Neck: Yes normal visual inspection Resp Effort & Inspection: normal respiratory effort Auscultation: clear to auscultation bilaterally, no rales, no rhonchi and no wheezes Cardio Jugular venous distension: no JVD Rate: regular rate Rhythm: regular rhythm Heart sounds: S1 normal heart sound present, S2 normal heart sound present, no murmurs and no rubs Neuro General: patient oriented x3 Extrem General: Yes normal to inspection, No no pedal edema and No calf tenderness Psych Other: Expressive aphasia present. Left-sided hemiparesis Appearance: grossly normal Mental Status: mental status grossly normal Assessment & Plan Assessment & Plan (1) Palpitations: Code(s): R00.2 - Palpitations Plan: CVA with residual left-sided weakness and expressive aphasia 11/2021. She has no known history of atrial fibrillation. On last visit she did report some heart palpitations. A cardiac event monitor was done on 05/31/2023 which showed sinus rhythm with heart rate range 83 to 150, sinus tach 30% of the time, frequent PVCs, 2%. Heart palpitations, racing heart and irregular heartbeat all correlated with PVCs. Echocardiogram done 05/31/2023 showing EF 50-55%, mild increase in the RV size, normal RV systolic function. She tells me she used to be on atenolol. At this time with her frequent PVCs will start on low-dose metoprolol. Plan to call her in a few weeks to reassess heart palpitations. Office visit in 6 months, sooner if needed (2) PVCs (premature ventricular contractions): Code(s): I49.3 - Ventricular premature depolarization Plan: Frequent PVCs, symptomatic as above. Starting low-dose metoprolol. May need to increase dose if she continues to have breakthrough symptoms. (3) Stroke: Comment: Oct 2021 Code(s): I63.9 - Cerebral infarction, unspecified Plan: 11/2021. Patient states she believes the stroke occurred due to elevated blood pressure readings. Blood pressure is mildly elevated today 140/70. Cardiac event monitor shows no sign of atrial fibrillation. Will be starting low-dose metoprolol to treat her PVCs which will help with blood pressure.. (4) Sleep apnea: Code(s): G47.30 - Sleep apnea, unspecified Plan: History of sleep apnea. She reports compliance with her CPAP Plan Time spent on chart review, documentation, interview and assessment Medications: New metoprolol succinate ER 25 mg PO DAILY 30 tabs 3RF Coding Level of Care Code Est Pt Level 4 (27504) Diagnoses Palpitations R00.2 PVCs (premature ventricular contractions) I49.3 Stroke I63.9 Sleep apnea G47.30 Time Spent (min) 28
[2023-10-09 15:19] VITALS: BP 140/70; PULSE 91
== END 2023-10-09 15:49 | disposition home or self-care (01) ==
PROVIDERS: PCP Internal Medicine; Visit Provider Nurse Practitioner Family
DX: R00.2 Palpitations (principal); I49.3 Ventricular premature depolarization; I63.9 Cerebral infarction, unspecified; G47.30 Sleep apnea, unspecified
CPT/HCPCS: 99214

== ENCOUNTER → 2023-10-09 14:20 | Outpatient (BNVA) | payer MEDICAID, SELFPAY | PROVIDERS: PCP Internal Medicine; Visit Provider Nurse Practitioner Family | DX: R00.2 Palpitations (principal); I49.3 Ventricular premature depolarization; I63.9 Cerebral infarction, unspecified; G47.30 Sleep apnea, unspecified | CPT/HCPCS: 99212 ==

== ENCOUNTER 2024-02-01 16:04 | Outpatient (REF) | payer MEDICAID, SELFPAY ==
[2024-02-01 18:07] LABS: Microalbum/Creatinine Ratio Ur 8.8 ug/mg cr (<30)
[2024-02-01 18:07] LABS: Cholesterol 102 mg/dL (<200); HDL Cholesterol 35 mg/dL (>40); LDL Cholesterol Calculated 31 mg/dL (<100); Triglycerides 184 mg/dL (<150)
== END 2024-02-01 16:05 | disposition home or self-care (01) ==
LOC: HO.CHCLDS 16:04
PROVIDERS: Visit Provider Internal Medicine
DX: E11.69 Type 2 diabetes mellitus with other specified complication (principal); N39.498 Other specified urinary incontinence
CPT/HCPCS: 36415; 80061; 82043; 82570

== ENCOUNTER 2024-05-21 14:46 | Outpatient (AMB) | payer MEDICAID, SELFPAY ==
--- NOTE | 2024-05-21 15:05 | A.OFFVIS_ITS ---
Vital Signs 05/21/24 15:06 Height 5 ft 5 in BP 130/64 Blood Pressure Location Rt brachial Position Sitting Pulse 84 Pulse Source Monitor Intake Visit Reasons: 6 month f/u no show on 04/09/24 Machine Stuffer Automatic Required: No Allergies adhesive tape [ADHESIVE TAPE] Allergy (Unknown, Verified 05/21/24 15:09) BLISTERS oxycodone [From PERCOCET] Allergy (Unknown, Verified 05/21/24 15:09) NAUSEA & VOMITING Medication List - Last Reconciled 05/21/24 by SANTO Ohara albuterol 90 mcg/actuation mcg inhalation albuterol sulfate 90 mcg/actuation 1 inh inhalation Q4-6H PRN cholecalciferol (vitamin D3) 25 mcg PO QAM cyclobenzaprine 10 mg PO QAM docusate sodium (Colace) 100 mg PO DAILY ferrous sulfate (FeroSul) 325 mg PO Q OTHER DAY fexofenadine 180 mg PO DAILY PRN fluticasone propionate 220 mcg/actuation (Flovent HFA) 1 puff inhalation BID fluticasone propionate 50 mcg/actuation 1 - 2 sprays intranasal QAM gabapentin 600 mg PO TID hydroxyzine pamoate 50 mg PO Q6H PRN iron,carbonyl-vitamin C 65 mg iron- 125 mg (Vitron-C) 1 tab PO DAILY ketoconazole 2% topical DAILY melatonin 5 mg PO BEDTIME metoprolol succinate ER 25 mg PO QAM multivitamin 1 tab PO QAM pantoprazole 40 mg PO BID prazosin 2 mg PO BEDTIME quetiapine 200 mg PO BEDTIME rosuvastatin 20 mg PO BEDTIME sennosides (senna) 17.2 mg PO BEDTIME sertraline 100 mg PO QAM topiramate 50 mg PO HPI HPI 6 month f/u no show on 04/09/24: Details: Fe is a 44-year-old female with past medical history of obesity status post bariatric surgery followed by issues with orthostatic blood pressures and had been on midodrine for blood pressure control, who developed left-sided weakness, expressive aphasia and was found to have a CVA. On prior visit to cardiology she reported heart palpitations. A cardiac event monitor showed no atrial fibrillation. Today she presents for follow-up. Today she reports that she has been doing generally well since her last visit in September. She remains wheelchair-bound and has residual left-sided hemiparesis. She does have ongoing expressive aphasia but is able to communicate fairly well. She has had no new neurological changes. She has been getting sharp stabbing pains to her left chest region that occur randomly. It use to feel more like a pinch however now it is worsening. She does have some stiffness in her left arm and shoulder with discomfort during range of motion which can contribute. She still gets intermittent heart palpitations however less than previously reported. She has some shortness of breath which occurs randomly. She does have a history of asthma and uses her inhalers. She has sleep apnea and reports compliance with her CPAP. She needs to sleep on her left side as is difficult to breathe when laying on her back. No presyncope, syncope, falls. No PND, orthopnea. She does get left lower leg edema. She continues to have physical therapy. Her FURNITURE REPAIR TECHNICIAN is present. [facility] Medical History Hiatal hernia Stroke Intestinal malabsorption following gastrectomy Uterine hyperplasia Obesity (BMI 30.0-34.9) Malabsorption due to intolerance, not elsewhere classified Asthma Obesity History of hepatoblastoma Surgical History S/P laparoscopic sleeve gastrectomy Bariatric surgery status Family History Mother Heart disease Mother Heart disease Father Kidney problem Arthritis Sister No problems noted. Sister No problems noted. Son No problems noted. Social History Household Members Other:: niece Housing: Apartment Alcohol intake: never Patient Tobacco Use Status: Never used Tobacco Current occupational status: disabled Sexual orientation: Straight/Heterosexual Gender identity: Female Female Reproductive History Menstrual Age of Menarche: 10 Review of Systems Const Details: Left hemiparesis - in wheelchair, slow speech All systems reviewed & are unremarkable except as noted in HPI and below ENT Denies dizziness Card Details: palpitations Reports chest pain, Denies chest pain at rest, Denies chest pain with activity, Denies rapid heart rate, Denies pedal edema, Denies edema, Denies leg edema, Denies lightheadedness, Denies palpitations, Reports dyspnea, Denies dyspnea on exertion and Denies orthopnea Resp Denies cough, Reports dyspnea and Denies dyspnea on exertion GI Denies hematochezia and Denies change in stool character Musc Denies abnormal gait, Denies limited range of motion, Denies muscle cramps, Denies muscle weakness, Denies numbness, Denies radiating pain into limb, Denies stiffness and Denies tingling Neuro Denies abnormal gait, Denies dizziness, Denies numbness and Denies tingling Endo Denies palpitations Physical Exam Vital Signs: Last Vital Signs Pulse 84 05/21/24 15:06 BP 130/64 05/21/24 15:06 Const Other: sitting in wheelchair General: cooperative, healthy appearing, comfortable and no acute distress Orientation/consciousness: patient oriented x3 Neck Neck: Yes normal visual inspection Resp Effort & Inspection: normal respiratory effort Auscultation: clear to auscultation bilaterally, no rales, no rhonchi and no wheezes Cardio Jugular venous distension: no JVD Rate: regular rate Rhythm: regular rhythm Heart sounds: S1 normal heart sound present, S2 normal heart sound present, no murmurs and no rubs Neuro Other: speech slow, some word finding - appropriate. Left hemiparesis. General: patient oriented x3 Extrem General: Yes normal to inspection, No no pedal edema and No calf tenderness Psych Other: Expressive aphasia present. Left-sided hemiparesis Appearance: grossly normal Mental Status: mental status grossly normal Office Procedures EKG Details: Today, read by me, normal sinus rhythm, left axis deviation, minimal voltage for LVH, rate 84, QTC 477 milliseconds [id number], Complete Assessment & Plan Assessment & Plan (1) Palpitations: Code(s): R00.2 - Palpitations Category: Medical Plan: CVA with residual left-sided hemiparesis and expressive aphasia 11/2021. Unclear cause of her CVA event. From a cardiology perspective we have evaluated her for atrial fibrillation. She has no history of atrial fibrillation. She has reported intermittent heart palpitations. A Holter monitor was done on 01/24/2023 for 3 days showing sinus rhythm with average heart rate 79, no AFib. A cardiac event monitor was done on 05/31/2023 which showed sinus rhythm with heart rate range 83 to 150, sinus tach 30% of the time, frequent PVCs, 2%. Heart palpitations, racing heart and irregular heartbeat all correlated with PVCs. Echocardiogram done 05/31/2023 showing EF 50-55%, mild increase in the RV size, normal RV systolic function. She was started on low-dose metoprolol. Today she reports some improvement in her heart palpitations. She continues to get them however not as frequent as previously reported. EKG done today showing normal sinus rhythm, rate 84. She has not followed with the neurologist in the recent past. She said her PCP sent a new referral for her to be seen again. Will check with her primary inspector handbag frames to see if ILR is indicated. Cardiology office visit in 6 months, sooner if needed (2) PVCs (premature ventricular contractions): Code(s): I49.3 - Ventricular premature depolarization Category: Medical Plan: Frequent PVCs, symptomatic as above. She is still reporting some palpitations however less than in the past. Continue metoprolol. - will consider increasing dose based on echo findings. EF was low normal on last echo. (3) Stroke: Comment: Oct 2021 Code(s): I63.9 - Cerebral infarction, unspecified Category: Medical Plan: 11/2021. Patient previously stated she believes the stroke occurred due to elevated blood pressure readings. Cardiac event monitor shows no sign of atrial fibrillation. (4) Sleep apnea: Code(s): G47.30 - Sleep apnea, unspecified Category: Medical Plan: History of sleep apnea. She reports compliance with her CPAP (5) Chest pain: Code(s): R07.9 - Chest pain, unspecified Category: Medical Plan: Reports of sharp pain in her left chest region, stabbing, random. Overall sounds atypical. EKG does not show any signs of ischemia. Her last echocardiogram had shown low normal EF and no wall motion abnormalities. Will recheck echo to ensure that EF has not further reduced and to evaluate for wall motion abnormalities. If wall motion changes seen then will plan for a pharmacological nuclear stress test. She has cardiac risk factors of obesity, sedentary. Reviewed signs and symptoms of angina. Emergency care if ever needed for pain that does not go away. Her discomfort could be musculoskeletal in nature as she does have hemiparesis on the left with some stiffness in her shoulder that creates discomfort with range of motion. Plan to call her with echo results. (6) Shortness of breath: Code(s): R06.02 - Shortness of breath Category: Medical Plan: She reports feeling short of breath at times. This could be related to her asthma. She has no rales on exam. She is obese but does not appear fluid overloaded. Last echo with low normal EF. Rechecking echo as above. Plan Time spent on chart review, documentation, interview and assessment Orders: Orders CA echo transthoracic complete Today R06.02 - Shortness of breath, R07.9 - Laura st pain, unspecified Coding Level of Care Code Est Pt Level 4 (26461) Diagnoses Palpitations R00.2 PVCs (premature ventricular contractions) I49.3 Stroke I63.9 Sleep apnea G47.30 Chest pain R07.9 Shortness of breath R06.02 CPT Codes EKG - CPT: 10622-[id number], Complete ([id number]) Time Spent (min) 30
[2024-05-21 15:06] VITALS: BP 130/64; PULSE 84
== END 2024-05-21 15:42 | disposition home or self-care (01) ==
PROVIDERS: PCP Internal Medicine; Visit Provider Nurse Practitioner Family
DX: R00.2 Palpitations (principal); I49.3 Ventricular premature depolarization; I63.9 Cerebral infarction, unspecified; G47.30 Sleep apnea, unspecified; R07.9 Chest pain, unspecified; R06.02 Shortness of breath
CPT/HCPCS: 93010; 99214

== ENCOUNTER → 2024-05-21 14:46 | Outpatient (BNVA) | payer MEDICAID, SELFPAY | PROVIDERS: PCP Internal Medicine; Visit Provider Nurse Practitioner Family | DX: I69.954 Hemiplegia and hemiparesis following unspecified cerebrovascular disease affecting left non-dominant side (principal); I69.920 Aphasia following unspecified cerebrovascular disease; I49.3 Ventricular premature depolarization; R00.2 Palpitations; R07.9 Chest pain, unspecified; R06.02 Shortness of breath; G47.30 Sleep apnea, unspecified | CPT/HCPCS: 93005; 99212 ==

== ENCOUNTER → 2024-06-28 14:00 | Outpatient (REF) | payer MEDICAID, SELFPAY ==
--- NOTE | 2024-06-28 14:04 | CA_ITS ---
Transthoracic Echocardiogram Patient (Last, First, Middle): Fe Morales, Gender: Female Date of : 1980 Age: 44 Procedure Date: 06/28/2024 Procedure Type: Transthoracic Echocardiogram Location: OP Height: 165.1 cm Weight: 130.01 kg BSA: 2.31 m2 Heart Rate: bpm BP: 118 / 60 mmHg Supervisor Dumping: TO Referring MD: Brenda Sauceda HEAD OF OPERATION AND LOGISTICS-Claudio Symptoms: R06.02 - Shortness of breath Study Quality: Technically Difficult, left-sided paralysis ECG Rhythm: Sinus Conclusions: - The left ventricular systolic function is mildly decreased. The calculated ejection fraction is 50% by biplane method. - No obvious valvular pathology seen on this study. Findings Procedure Information Contrast agent, definity, is being given per protocol without apparent complications. Left Ventricle Normal left ventricular cavity size. The left ventricular systolic function is mildly decreased. The calculated ejection fraction is 50% by biplane method. There is mild global hypokinesis. Diastolic function is normal for age. There is mild septal asymmetric hypertrophy. Right Ventricle Normal right ventricular cavity size and systolic function. Atria The left atrium is mildly dilated. The right atrium is normal in size. Aortic Valve There is a normal trileaflet aortic valve. There is no aortic valve stenosis. There is no aortic valve regurgitation. Mitral Valve The mitral valve appears normal. There is no mitral valve regurgitation. There is no mitral valve stenosis. Pulmonic Valve The pulmonic valve is likely normal. Tricuspid Valve There is mild tricuspid valve regurgitation. There is no evidence of pulmonary hypertension. Great Vessels The asc aorta is normal in size. Venous The inferior vena cava was not well visualized. Pericardium/Pleural There is no evidence of pericardial effusion. Prior Study Comparison No significant change compared to prior study dated: 05/31/2023. Recommendations, Care & Conclusions No obvious valvular pathology seen on this study. Measurements 2D Linear Measurements IVSd: 1.17 0.6-0.9/0.6-1.0 cm LVIDd: 5.09 3.9-5.3/4.2-5.9 cm LVIDd Index: 2.20 2.4-3.2/2.2-3.1 cm/m2 LVIDs: 3.38 2.0-3.6 cm LVPWd: 0.86 0.7-1.1 cm LA Diam: 4.00 2.7-3.8/3.0-4.0 cm LAIDs Index: 1.73 1.5-2.3 cm/m2 LV Mass: 237.44 67-162/88-224 g LV Mass Index: 102.79 43-95/49-115 g/m2 LVOT Diam: 2.20 3.0+(-)1.3 cm 2D Systolic Function EF 4C: 50.90 >55% EF 2C: 52.70 >55% EF BiP: 50.30 >55% Mitral Valve MV Pk E: 0.73 MV PK A: 0.49 MV Decel Time: 144.00 E/A: 1.50 E'Lateral: 8.70 E'Medial: 7.07 E/E' Med: 10.40 E/E' Lat: 8.40 PHT: 42.00 MVA PHT: 5.24 Decel Stonewall: 5.08 Aortic Valve AoV Pk Srinivasa: 1.38 AoV Mn Srinivasa: 0.82 AoV VTI: 0.25 AoV Pk Grad: 8.00 Aov Mn Grad: 3.00 AMBROCIO Cont.VTI: 3.33 LVOT LVOT Pk Srinivasa: 0.99 LVOT Mn Srinivasa: 0.69 LVOT VTI: 0.22 LVOT Pk Grad: 4.00 LVOT Mn Grad: 2.00 LVOT Diam: 2.20 LVOT Area: 3.80 Diastolic Function MV Pk E: 0.73 MV Pk A: 0.49 E/A: 1.50 E'Medial: 7.07 E/E' Med: 10.40 E' Laterial: 8.70 E/E' Lat: 8.40 Right Ventricle TAPSE (mm): 22.30 TVS' Srinivasa: 11.30 Tricuspid Valve TR Pk Srinivasa: 2.42 TR Pk Grad: 23.00 RA Press: 3.00 RVSP: 26.00 Great Vessels Aorta Sinus of Valsalva: 3.40 2.0-3.5 cm Ao Asc: 3.30 2.1-3.4 cm Updated in Other Vendor System with Status of Final Sylvester Tillman MD electronically signed on 06/30/2024 9:26:44 AM with status of Final
== END ==
LOC: HO.CARD 14:00
PROVIDERS: Visit Provider Nurse Practitioner Family
DX: R07.9 Chest pain, unspecified (principal); R06.02 Shortness of breath
CPT/HCPCS: 93306; Q9957

== ENCOUNTER → 2024-06-28 14:04 | Outpatient (BNV) | payer MEDICAID, SELFPAY | PROVIDERS: Visit Provider Internal Medicine | DX: I42.2 Other hypertrophic cardiomyopathy (principal); I36.1 Nonrheumatic tricuspid (valve) insufficiency | CPT/HCPCS: 93306 ==

== ENCOUNTER 2024-07-22 12:58 | Outpatient (AMB) | payer MEDICAID, SELFPAY ==
--- NOTE | 2024-07-22 12:59 | A.OFFVIS_ITS ---
VS Expanded 07/22/24 13:09 BP 137/83 Blood Pressure Location Rt radial Blood Pressure Position Sitting Pulse 96 Pulse Source Pulse Oximeter Temp 97.2 F Temperature Source Temporal Artery Scan Pulse Oximetry 95 Oxygen Delivery Method Room Air Height 5 ft 5 in Weight 318 lb 6.4 oz BMI 53.0 Comment PT UNABLE TO STAND WEIGHT IS FROM WHEELCHAIR SCALE Intake Visit Reasons: (OV) POM LSG 09/12/19 Intake Note: PT UNABLE TO STAND TO DO TANITA SCALE. PT WIEGHED ON WHEELCHAIR SCALE WHICH READ 362.4 WITH CHAIR. CHAIR WEIGHED ALONE WHICH WAS 43.8. MAKING PTS WEIGHT 318.4. Allergies adhesive tape [ADHESIVE TAPE] Allergy (Unknown, Verified 07/22/24 13:14) BLISTERS oxycodone [From PERCOCET] Allergy (Unknown, Verified 07/22/24 13:14) NAUSEA & VOMITING Medication List - Last Reconciled 07/22/24 by FIDE Stovall albuterol 90 mcg/actuation mcg inhalation albuterol sulfate 90 mcg/actuation 1 inh inhalation Q4-6H PRN cholecalciferol (vitamin D3) 25 mcg PO QAM cyclobenzaprine 10 mg PO QAM docusate sodium (Colace) 100 mg PO DAILY ferrous sulfate (FeroSul) 325 mg PO Q OTHER DAY fexofenadine 180 mg PO DAILY PRN fluticasone propionate 220 mcg/actuation (Flovent HFA) 1 puff inhalation BID fluticasone propionate 50 mcg/actuation 1 - 2 sprays intranasal QAM gabapentin 600 mg PO TID hydroxyzine pamoate 50 mg PO Q6H PRN iron,carbonyl-vitamin C 65 mg iron- 125 mg (Vitron-C) 1 tab PO DAILY ketoconazole 2% topical DAILY melatonin 5 mg PO BEDTIME metoprolol succinate ER 25 mg PO QAM multivitamin 1 tab PO QAM pantoprazole 40 mg PO BID prazosin 2 mg PO BEDTIME quetiapine 200 mg PO BEDTIME rosuvastatin 20 mg PO BEDTIME sennosides (senna) 17.2 mg PO BEDTIME sertraline 100 mg PO QAM topiramate 50 mg PO HPI Comments Details: This?is a?44?yo female who is s/p LSG 09/12/2019. Presents for 4 year 10 month post op visit. Weight at last visit on 12/24/2020 was 181 pounds; weight today is 318.4 pounds, representing a 137.4 pound weight gain with a BMI today of 53.? No complaints of nausea, emesis, abdominal pain or reflux, or constipation. Pt reports she had a stroke in 2021 and has been gaining nonstop since then. Took phentermine in the past prescribed by Dr. Aguilar; found it helpful. Present meal plan includes: not following a meal plan, eating healthy - fruits, yogurts, meats, vegetables uses protein shakes, [employer]- 20g per scoop Still restricted in portion size, may vomit if she eats too much Exercise routine includes: wheelchair bound, right side functional, left side paralyzed Have you been diagnosed with reflux (GERD)? Score 0-5: 0=no symptoms, 1=noticeable but not bothersome (slight or occasional), 2=noticeable, bothersome but not daily, 3=bothersome and daily, 4=affects daily activities, 5=incapacitating, unable to do daily activities How bad is the heartburn: 4 Heartburn when lying down: 3 Heartburn when standing up: 3 Heartburn after meals: 3 Does heartburn change your diet: 4 Does heartburn wake you up from sleep: 5 Do you have difficulty swallowin Do you have pain with swallowin If you take medication for reflux, does this affect your daily life: 0 Total score: 30 Had a barium swallow about a year ago, with results as follows (done for dysphagia): IMPRESSION: 1. Very limited exam due to patient inability to tolerate positioning and overall medical condition. No evidence of aspiration of the barium contrast. 2. Limited evaluation of the esophagus shows dysmotility which led to regurgitation (vomiting) of the barium. Etiology is unclear. 3. Small type III hiatal hernia. [facility] Medical History Hiatal hernia Stroke Intestinal malabsorption following gastrectomy Uterine hyperplasia Obesity (BMI 30.0-34.9) Malabsorption due to intolerance, not elsewhere classified Asthma Obesity History of hepatoblastoma Surgical History S/P laparoscopic sleeve gastrectomy Bariatric surgery status Family History Mother Heart disease Mother Heart disease Father Kidney problem Arthritis Sister No problems noted. Sister No problems noted. Son No problems noted. Social History Household Members Other:: niece Housing: Apartment Alcohol intake: current Alcohol intake frequency: holidays/special occasions only Patient Tobacco Use Status: Never used Tobacco Current occupational status: disabled Sexual orientation: Straight/Heterosexual Gender identity: Female Female Reproductive History Menstrual Age of Menarche: 10 Assessment & Plan Assessment & Plan (1) S/P laparoscopic sleeve gastrectomy: Comment: 2018 Code(s): Z98.84 - Bariatric surgery status Category: Medical (2) Morbid obesity: Code(s): E66.01 - Morbid (severe) obesity due to excess calories Category: Medical Plan Pt agreeable to restarting protein shake based meal plan. wakes 12pm, sleeps 4am 1-3pm [employer] 2 scoops (30g) 4-6pm 1 scoop (20g) 6:30pm meal- 6f ff/6ff 8-10pm 1 scoop (20g) 11pm-1am Transform nighttime 2 scoops (22g) Can add additional shake at 2am if needed/hungry but we discussed the risk of worsening reflux with this. If she follows meal plan consistently but still struggles with hunger will consider discussing phentermine with Dr. Skylar Childs ordered. Sent pt text with my contact info. Encouraged her to reach out with any concerns between visits. RTC 6-8w. I spent a total of 50 minutes reviewing/updating records, examining the patient and counseling the patient on weight management as detailed above. Orders: Orders Insulin Today Z98.84 - Bariatric surgery status Comprehensive Met. Panel Today Z98.84 - Bariatric surgery status Vitamin B12 and Folate Today Z98.84 - Bariatric surgery status Vitamin B1 Today Z98.84 - Bariatric surgery status Ferritin Today Z98.84 - Bariatric surgery status Vitamin D 25-OH Total Today Z98.84 - Bariatric surgery status Hemoglobin A1c Today Z98.84 - Bariatric surgery status Complete Blood Count Auto Diff Today Z98.84 - Bariatric surgery status IRON PROFILE Today Z98.84 - Bariatric surgery status Zinc Today Z98.84 - Bariatric surgery status C Reactive Protein Today Z98.84 - Bariatric surgery status Vitamin A Today Z98.84 - Bariatric surgery status TSH reflex Free T4 Today Z98.84 - Bariatric surgery status
[2024-07-22 13:09] VITALS: BP 137/83; PULSE 96; TEMP 36.2; O2SAT 95; BMI 53.0
== END 2024-07-22 13:57 | disposition home or self-care (01) ==
PROVIDERS: PCP Internal Medicine; Visit Provider Physician Assistant Surgical
DX: E66.01 Morbid (severe) obesity due to excess calories (principal); Z98.84 Bariatric surgery status
CPT/HCPCS: 99215

== ENCOUNTER → 2024-07-22 12:58 | Outpatient (BNVA) | payer MEDICAID, SELFPAY | PROVIDERS: PCP Internal Medicine; Visit Provider Physician Assistant Surgical | DX: E66.01 Morbid (severe) obesity due to excess calories (principal); K90.49 Malabsorption due to intolerance, not elsewhere classified; I69.954 Hemiplegia and hemiparesis following unspecified cerebrovascular disease affecting left non-dominant side; Z68.43 Body mass index [BMI] 50.0-59.9, adult; Z99.3 Dependence on wheelchair; Z90.3 Acquired absence of stomach [part of] | CPT/HCPCS: 99212 ==

== ENCOUNTER 2024-09-20 14:13 | Outpatient (REF) | payer MEDICAID, SELFPAY | END 2024-09-20 14:14 | disposition home or self-care (01) | LOC: HO.MAMMO 14:13 | PROVIDERS: PCP Internal Medicine; Visit Provider Internal Medicine | DX: Z12.31 Encounter for screening mammogram for malignant neoplasm of breast (principal) | CPT/HCPCS: 77063; 77067 ==

== ENCOUNTER → 2024-09-20 14:30 | Outpatient (BNV) | payer MEDICAID, SELFPAY | PROVIDERS: PCP Internal Medicine; Visit Provider Internal Medicine | DX: Z12.31 Encounter for screening mammogram for malignant neoplasm of breast (principal) | CPT/HCPCS: 77063; 77067 ==